=== PATIENT | male | born 1985 | race Caucasian/White ===

== ENCOUNTER 2016-12-02 08:39 | Outpatient (CLI) | payer OTHER | END 2016-12-02 08:40 | LOC: MADLABBHPM 08:39 | PROVIDERS: ATTEND Family Medicine | DX: K29.90 Gastroduodenitis, unspecified, without bleeding (principal) | CPT/HCPCS: 36415; 86677 ==

== ENCOUNTER 2017-03-30 23:23 | Emergency (ER) | payer OTHER ==
[2017-03-30] MEDS ORDERED: Acetaminophen 500 MG TAB ONE (23:53)
== END 2017-03-31 01:00 | disposition home or self-care (01) ==
LOC: MADERS 23:23
DX: R50.9 Fever, unspecified (principal); Z79.899 Other long term (current) drug therapy
CPT/HCPCS: 99283

== ENCOUNTER 2023-05-25 12:43 | Emergency (ER) | payer OTHER ==
[~2023-05-25 12:43] MED LIST: Iopamidol 370 76% 100 ML VIAL ONE
[2023-05-25] MEDS ORDERED: Ibuprofen 800 MG TAB ONE (14:17)
== END 2023-05-25 14:20 | disposition home or self-care (01) ==
LOC: MADERS 12:43
DX: S20.212A Contusion of left front wall of thorax, initial encounter (principal); S40.012A Contusion of left shoulder, initial encounter; I10 Essential (primary) hypertension; Z79.899 Other long term (current) drug therapy; V80.010A Animal-rider injured by fall from or being thrown from horse in noncollision accident, initial encounter
CPT/HCPCS: 71260; 93005; Q9967